=== PATIENT | female | born 1995 | race Caucasian/White ===

== ENCOUNTER 2017-11-27 15:38 | Emergency (ER) | payer OTHER ==
[~2017-11-27] VITALS: Ht 167.6 cm; Wt 51.3 kg
[2017-11-27 15:47] VITALS: BP 131/89
[2017-11-27] MEDS ORDERED: FLUO10CA26 PO (15:54)
[2017-11-27] MEDS ORDERED: BIRTH CONTROL PILL (15:54)
== END 2017-11-27 16:19 | disposition home or self-care (01) ==
LOC: ER 15:40
DX: S00.83XA Contusion of other part of head, initial encounter (principal); F41.9 Anxiety disorder, unspecified; F32.9 Major depressive disorder, single episode, unspecified; V43.52XA Car driver injured in collision with other type car in traffic accident, initial encounter; Y93.89 Activity, other specified; Y92.481 Parking lot as the place of occurrence of the external cause; Y99.8 Other external cause status
CPT/HCPCS: 99281; A4606; Z7610; Z7502